=== PATIENT | female | born 1950 | race Caucasian/White ===

== ENCOUNTER 2022-07-17 18:16 | Inpatient (IN) | payer MEDICARE ==
[~2022-07-17 18:16] MED LIST: Iopamidol-370 76% 500 ML 1 ML ONE
[2022-07-17] MEDS ORDERED: Magnesium 2 GM/50 ML BAG (IN WATER) ONE (19:19)
[2022-07-17] MEDS ORDERED: cefTRIAXone\\ROCEPHIN 1 GM VIAL ONE (19:19)
[2022-07-17] MEDS ORDERED: Aspirin Chewable 81 MG TAB ONE (19:19)
[2022-07-17 19:22] LABS: #Lymphocytes 0.6 thou/uL (1.20-3.40); #Monocytes 0.4 thou/uL (0.11-0.59); #Neutrophils 11.2 thou/uL (1.40-6.50); %Basophils 0.2 % (0.0-1.0); %Eosinophils 0.2 % (0.0-10.0); %Lymphocytes 4.8 % (21.0-51.0); %Monocytes 2.9 % (0.0-10.0); Hemoglobin 11.3 g/dL (12.0-16.0); Mean Corpuscular HGB CONC 33.7 g/dL (32.0-36.0); Mean Corpuscular Hemoglobin 30.7 pg (27.0-31.0); Mean Corpuscular Volume 90.9 fl (78.0-98.0); Mean Platelet Volume 6.6 fL (7.4-10.4); Platelet Count 318 10x3/uL (130-400); RBC Distribution Width 12.4 % (11.5-14.5); Red Blood Cell (RBC) Count 3.69 mill/uL (4.20-5.40); White Blood Cell (WBC) Count 12.2 10x3/uL (4.8-10.8)
[2022-07-17 19:36] LABS: Chloride 104 mmol/L (98-107); Sodium 138 mmol/L (136-145)
[2022-07-17 19:47] LABS: ALT (SGPT) 21 U/L (8-55); AST (SGOT) 15 U/L (5-34); Albumin 3.8 g/dL (3.4-4.8); Alkaline Phosphatase 103 U/L (40-110); Anion Gap 15 mmol/L (10-20); BUN (Urea Nitrogen) 13 mg/dL (9.8-20.1); Bilirubin, Total 0.6 mg/dL (0.2-1.2); CK (CPK) 54 U/L (29-168); Calc. Creatinine Clearance 0 mL/min (70-130); Calcium 8.3 mg/dL (7.8-10.44); Carbon Dioxide 22 mmol/L (23-31); Estimated GFR 83; Globulin 2.3 g/dL (2.4-3.5); Glucose 143 mg/dL (83-110); Protein, Total 6.1 g/dL (5.8-8.1)
[2022-07-17] MEDS ORDERED: Acetaminophen 500 MG TAB ONE (20:16)
[2022-07-17] MEDS ORDERED: Ondansetron PF 4 MG/2 ML Vial IVP PRN (20:42)
[2022-07-17] MEDS ORDERED: Potassium Chloride 20 MEQ TAB PO SCH (20:45)
[2022-07-17] MEDS ORDERED: Enoxaparin Sodium 40 MG/0.4 ML SYRINGE SC SCH (20:45)
[2022-07-17 21:22] LABS: Magnesium 1.8 mg/dL (1.6-2.6)
[2022-07-17 22:10] VITALS: BMI 25.1
[2022-07-17] MEDS ORDERED: guaiFENesin/DM ER PO SCH (22:30)
[2022-07-17] MEDS: Benzonatate 100 MG CAP PO PRN (23:36)
[2022-07-17] MEDS ORDERED: methylPREDNISolone Sod Succ/PF 125 MG/2 ML VIAL IVP SCH (23:59)
[2022-07-18 00:44] LABS: SARS-CoV-2 NAA Rapid Test Not Detected (NotDetected)
[2022-07-18] MEDS: methylPREDNISolone Sod Succ 40 MG VIAL IVP SCH ×4 (06:02→23:18)
[2022-07-18 07:51] LABS: #Lymphocytes 0.6 thou/uL (1.20-3.40); #Monocytes 0.2 thou/uL (0.11-0.59); #Neutrophils 7.1 thou/uL (1.40-6.50); %Eosinophils 0.2 % (0.0-10.0); %Lymphocytes 7.2 % (21.0-51.0); %Neutrophils 90.7 % (42.0-75.0); Hemoglobin 9.7 g/dL (12.0-16.0); Mean Corpuscular HGB CONC 31.9 g/dL (32.0-36.0); Mean Corpuscular Hemoglobin 29.4 pg (27.0-31.0); Mean Corpuscular Volume 92.1 fl (78.0-98.0); Platelet Count 277 10x3/uL (130-400); RBC Distribution Width 12.6 % (11.5-14.5); White Blood Cell (WBC) Count 7.8 10x3/uL (4.8-10.8)
[2022-07-18 08:13] LABS: Anion Gap 12 mmol/L (10-20); BUN (Urea Nitrogen) 13 mg/dL (9.8-20.1); Calc. Creatinine Clearance 67 mL/min (70-130); Calcium 8.1 mg/dL (7.8-10.44); Carbon Dioxide 20 mmol/L (23-31); Chloride 109 mmol/L (98-107); Estimated GFR 85; Glucose 227 mg/dL (83-110); Magnesium 2.6 mg/dL (1.6-2.6); Potassium 3.2 mmol/L (3.5-5.1); Sodium 138 mmol/L (136-145)
[2022-07-18] MEDS: Citalopram 20 MG TAB PO SCH (08:29)
[2022-07-18] MEDS: Lisinopril 20 MG TAB PO SCH (08:30)
[2022-07-18] MEDS: Benzonatate 100 MG CAP PO PRN ×3 (08:30→20:04)
[2022-07-18] MEDS ORDERED: Electrolyte Replacement Protocol 1 EACH FS SCH (08:30)
[2022-07-18] MEDS: guaiFENesin/DM ER PO SCH ×2 (08:30→20:05)
[2022-07-18] MEDS: Acetaminophen 325 MG TAB PO PRN (08:33)
[2022-07-18] MEDS ORDERED: FLU VACC QS2022-23(65YR UP)/PF 240 MCG/0.7 ML SYRINGE IM ONE (09:00)
[2022-07-18] MEDS ORDERED: Electrolyte Replacement Protocol FS PRN (11:15)
[2022-07-18] MEDS ORDERED: Potassium Chloride 20 MEQ TAB PO SCH (11:15)
[2022-07-18] MEDS ORDERED: Guaifenesin DM 100-10/5 ML UDCUP PO PRN (12:19)
[2022-07-18] MEDS ORDERED: Artificial Tear Sol 15 ML BOT EA EYE PRN (12:39)
[2022-07-18] MEDS ORDERED: Sodium Chloride 0.65% Nasal 44 ML BOT EA NARE PRN (12:39)
[2022-07-18] MEDS ORDERED: Ibuprofen 200 MG TAB PO PRN (12:39)
[2022-07-18] MEDS ORDERED: Moisturizing Cream (Eucerin) 113 GM JAR TOP PRN (12:39)
[2022-07-18] MEDS ORDERED: Loratadine 10 MG TAB PO PRN (12:39)
[2022-07-18 17:29] LABS: Potassium 3.5 mmol/L (3.5-5.1)
[2022-07-18] MEDS: Cepastat Lozenges 1 LOZ PO PRN ×2 (18:00→20:00)
[2022-07-18] MEDS ORDERED: cefTRIAXone\\ROCEPHIN 1 GM in Sodium Chloride 0.9% 100 ML IVPB SCH (20:00)
[2022-07-18] MEDS: Mometasone 100 MCG/Formoterol 5 MCG 120 PUFF INHALER INH SCH (20:45)
[2022-07-18] MEDS ORDERED: Azithromycin 500 MG in Sodium Chloride 0.9% 250 ML 250 ML IVPB SCH (21:00)
[2022-07-19] MEDS ORDERED: Melatonin 3 MG TAB PO PRN (01:11)
[2022-07-19] MEDS: Acetaminophen 325 MG TAB PO PRN (01:27)
[2022-07-19] MEDS: methylPREDNISolone Sod Succ 40 MG VIAL IVP SCH ×2 (05:32→12:29)
[2022-07-19] MEDS: Mometasone 100 MCG/Formoterol 5 MCG 120 PUFF INHALER INH SCH (07:21)
[2022-07-19 07:50] LABS: Anion Gap 13 mmol/L (10-20); BUN (Urea Nitrogen) 17 mg/dL (9.8-20.1); Calc. Creatinine Clearance 62 mL/min (70-130); Calcium 8.5 mg/dL (7.8-10.44); Carbon Dioxide 22 mmol/L (23-31); Chloride 109 mmol/L (98-107); Estimated GFR 78; Glucose 179 mg/dL (83-110); Magnesium 2.6 mg/dL (1.6-2.6); Potassium 4.3 mmol/L (3.5-5.1); Sodium 140 mmol/L (136-145)
[2022-07-19] MEDS ORDERED: Ferrous Sulfate 325 MG TAB PO SCH (08:00)
[2022-07-19 08:30] LABS: Band 22 % (5-11); Hemoglobin 9.4 g/dL (12.0-16.0); Lymphocytes 3 % (21-51); MDiff Complete? YES; Mean Corpuscular HGB CONC 31.7 g/dL (32.0-36.0); Mean Corpuscular Hemoglobin 29.2 pg (27.0-31.0); Mean Platelet Volume 7.1 fL (7.4-10.4); Metamyelocyte 1 % (0-0); Myelocyte 1 % (0-0); Neutrophil 73 % (42-75); Platelet Count 336 10x3/uL (130-400); Platelet Morphology Comment Appears Adequate; Polychromasia SLIGHT = 2-3 cells (100X) (0-2/hpf); RBC Distribution Width 12.8 % (11.5-14.5); Red Blood Cell (RBC) Count 3.24 mill/uL (4.20-5.40); White Blood Cell (WBC) Count 14.7 10x3/uL (4.8-10.8)
[2022-07-19] MEDS: Citalopram 20 MG TAB PO SCH (08:47)
[2022-07-19] MEDS: Lisinopril 20 MG TAB PO SCH (08:47)
[2022-07-19] MEDS: Benzonatate 100 MG CAP PO PRN (08:47)
[2022-07-19] MEDS: guaiFENesin/DM ER PO SCH (08:47)
[2022-07-19] MEDS ORDERED: Folic Acid 1 MG TAB PO SCH (09:00)
[2022-07-19 11:13] VITALS: BP 191/111; TEMP 98.6
== END 2022-07-19 14:22 | disposition home or self-care (01) | DRG 190 ==
LOC: ERS 18:16 → T4-A 20:40
PROVIDERS: ADMIT Internal Medicine; ATTEND Family Medicine
DX: J44.1 Chronic obstructive pulmonary disease with (acute) exacerbation (principal); J12.9 Viral pneumonia, unspecified; Z20.822 Contact with and (suspected) exposure to COVID-19; F41.9 Anxiety disorder, unspecified; E87.6 Hypokalemia; D64.9 Anemia, unspecified; Z90.710 Acquired absence of both cervix and uterus; Z90.49 Acquired absence of other specified parts of digestive tract; Z87.891 Personal history of nicotine dependence
CPT/HCPCS: 36415; 71045; 71275; 80048; 80053; 82550; 83605; 83735; 84484; 85025; 87070; 87205; 90471; 90662; 90732; 93005; 94640; 94760; 96365; 96375; G0008; G0009; J0456; J0696; J1650; J2920; J2930; J3475; J3490; J7050; J7620; Q9967